=== PATIENT | female | born 2000 | race Two or more races ===

== ENCOUNTER 2020-09-11 07:16 | Outpatient (CLI) | payer BC, SELFPAY ==
[2020-09-11 12:19] LABS: Abs Immature Grans 0.01 10^3/uL (0.0-0.06); Absolute Basophil Count 0.03 10^3/uL (0.0-0.2); Absolute Eosinophil Count 0.06 10^3/uL (0.0-0.7); Absolute Lymphocyte Count 1.96 10^3/uL (1.2-3.4); Absolute Monocyte Count 0.42 10^3/uL (0.1-0.8); Absolute Neutrophil Count 2.14 10^3/uL (1.2-6.7); Basophils % 0.6; Eosinophils % 1.3; HGB 13.7 g/dL (11.2-15.7); Immature Grans % 0.2; Lymphocytes % 42.4; MCHC 33.4 % (32.0-36.0); MCV 89.9 fL (80-95); MPV 8.8 fL (8.0-11.0); Monocytes % 9.1; Neutrophils % 46.4; Nucleated RBC 0 %; Platelet Count 277 10^3/uL (130-400); RBC 4.56 10^6/uL (3.93-5.22); RDW 11.7 % (11.7-14.6); RDW-SD 38.5 fL; WBC 4.62 10^3/uL (4.4-10.8)
[2020-09-11 12:59] LABS: ALT 26 U/L (14-59); AST 14 U/L (15-37); Albumin 3.8 g/dL (3.4-5.0); Alkaline Phosphatase 54 U/L (46-116); Anion Gap 6.2 mmol/L (3-11); BUN 12 mg/dL (7-18); Bilirubin, Total 0.4 mg/dL (0.2-1.0); CO2 28.8 mmol/L (21.0-32.0); Chloride 105 mmol/L (98-107); Glucose 83 mg/dL (74-106); Potassium 4.4 mmol/L (3.5-5.1); Sodium 140 mmol/L (136-145); Total Protein 7.2 g/dL (6.4-8.2)
[2020-09-11 13:02] LABS: ESR 9 mm/hr (0-20)
[2020-09-11 13:07] LABS: C-Reactive Protein 0.65 mg/dL (0.0-0.3)
== END 2020-09-11 07:36 ==
PROVIDERS: PCP Pediatrics; Visit Provider Nurse Practitioner Pediatrics
DX: K92.1 Melena (principal)
CPT/HCPCS: 36415; 80053; 85652; 85025; 86140

== ENCOUNTER 2024-02-08 12:59 | Outpatient (CLI) | payer BC, SELFPAY ==
[2024-02-08 13:28] LABS: Abs Immature Grans 0.02 10^3/uL (0.0-0.06); Absolute Basophil Count 0.06 10^3/uL (0.0-0.2); Absolute Eosinophil Count 0.11 10^3/uL (0.0-0.7); Absolute Lymphocyte Count 2.25 10^3/uL (1.2-3.4); Absolute Monocyte Count 0.51 10^3/uL (0.1-0.8); Absolute Neutrophil Count 3.53 10^3/uL (1.2-6.7); Basophils % 0.9 %; Eosinophils % 1.7 %; HCT 38.6 % (36.0-46.0); HGB 13.3 g/dL (11.2-15.7); Immature Grans % 0.3 %; Lymphocytes % 34.7 %; MCH 30.3 pg (27.0-33.0); MCHC 34.5 % (32.0-36.0); MCV 88 fL (80-95); MPV 9.2 fL (8.0-11.0); Monocytes % 7.9 %; Neutrophils % 54.5 %; Platelet Count 307 10^3/uL (130-400); RBC 4.39 10^6/uL (3.93-5.22); RDW 11.7 % (11.7-14.6); RDW-SD 37.7 fL; WBC 6.48 10^3/uL (4.4-10.8)
[2024-02-08 14:10] LABS: Iron 110 ug/dL (50-170)
[2024-02-08 14:34] LABS: ALT 26 U/L (14-59); AST 13 U/L (15-37); Albumin 3.8 g/dL (3.4-5.0); Alkaline Phosphatase 71 U/L (46-116); BUN 10 mg/dL (7-18); Bilirubin, Total 0.5 mg/dL (0.2-1.0); CREATININE 0.8 mg/dL (0.55-1.02); Calcium 8.7 mg/dL (8.5-10.1); Chloride 105 mmol/L (98-107); Estimated GFR 106.11 (mL/min/1.73m2); Ferritin 42 ng/mL (8-252); Glucose 73 mg/dL (74-106); Potassium 3.8 mmol/L (3.5-5.1); Sodium 143 mmol/L (136-145); TSH (W/Ref FT4) 0.91 uIU/mL (0.36-3.74); Total Protein 7.4 g/dL (6.4-8.2); Vitamin B12 1050 pg/mL (193-986); Vitamin D 25 Total 60.9 ng/mL (30-100)
[2024-02-09 13:01] LABS: ANA Interpretation Negative (Negative)
[2024-02-16 13:16] LABS: Testosterone, Free 0.28 ng/dL (<0.13-1.08); Testosterone, Total 14 ng/dL (8-60)
== END 2024-02-08 13:00 | disposition home or self-care (01) ==
PROVIDERS: PCP Nurse Practitioner Family; Visit Provider Internal Medicine Endocrinology, Diabetes & Metabolism
DX: L65.0 Telogen effluvium (principal); E55.9 Vitamin D deficiency, unspecified; E03.9 Hypothyroidism, unspecified
CPT/HCPCS: 36415; 80053; 82306; 84402; 84403; 82607; 82728; 83540; 84443; 85025; 86038

== ENCOUNTER 2025-02-02 15:12 | Outpatient (REF) | payer BC, SELFPAY ==
--- NOTE | 2025-02-02 14:30 | PAPFT_PTH ---
PATIENT: Anita Whalen LOC: [facility] U#:[id number] AGE/SX: 24/F ROOM: RE02/02/[address]: Deya Shirley MD : [id number] BED: DIS: 02/02/2025 SPEC #: [id number] RECD: 02/02/25 18:08 STATUS: CAMILLA REKriss #: [id number] SAMY: 02/02/25 14:[address]: Deya Shirley DEPT: [facility] Cytology RECD BY: Asiya Alberts ENTERED: 02/02/25 18:08 SP TYPE: PAPFT OTHR DR: Tona Welsh, PATSY Tissues: 1 - CX/ENDOCX FOR PAP SMEARS Procedures: PAP THIN PREP/[facility] Screening Comments: [id number] (CHLAMYDIA/GC)
[2025-02-03 12:13] LABS: Chlamydia Result Negative (Negative); GC Result Negative (Negative)
== END 2025-02-02 15:13 | disposition home or self-care (01) ==
LOC: LBN 15:12
PROVIDERS: PCP Nurse Practitioner Family; Visit Provider Obstetrics & Gynecology
DX: N76.0 Acute vaginitis (principal)
CPT/HCPCS: 87491; 87591; 88142; 87480; 87510; 87660

== ENCOUNTER 2025-02-02 15:15 | Outpatient (CLI) | payer BC, SELFPAY ==
[2025-02-02 15:06] LABS: HCT 42.3 % (36.0-46.0); HGB 14.3 g/dL (11.2-15.7); MCH 30.6 pg (27.0-33.0); MCHC 33.8 % (32.0-36.0); MCV 91 fL (80-95); MPV 8.5 fL (8.0-11.0); Platelet Count 305 10^3/uL (130-400); RBC 4.67 10^6/uL (3.93-5.22); RDW 11.8 % (11.7-14.6); RDW-SD 38.8 fL; WBC 7.02 10^3/uL (4.4-10.8)
[2025-02-02 16:07] LABS: ALT 21 U/L (14-59); AST 14 U/L (15-37); Albumin 3.8 g/dL (3.4-5.0); Alkaline Phosphatase 64 U/L (46-116); Anion Gap 7.6 mmol/L (3-11); BUN 13 mg/dL (7-18); Bilirubin, Total 0.4 mg/dL (0.2-1.0); CO2 30.4 mmol/L (21.0-32.0); Calcium 9.1 mg/dL (8.5-10.1); Chloride 104 mmol/L (98-107); Estimated GFR 80.68 (mL/min/1.73m2); Glucose 93 mg/dL (74-106); Potassium 3.8 mmol/L (3.5-5.1); Sodium 142 mmol/L (136-145); TSH (W/Ref FT4) 1.09 uIU/mL (0.36-3.74); Total Protein 7.7 g/dL (6.4-8.2)
[2025-02-04 03:35] LABS: HIV-1/2 Ag & Ab Screen Negative (Negative)
[2025-02-04 04:40] LABS: HBs Antibody, Qual Negative (See Note); HBs Antibody, Quant <3.1 mIU/mL (See Note); Hepatitis B Core Antibody Negative (Negative); Hepatitis B surface Ag Negative (Negative); Hepatitis C Ab w Rflx HCV PCR Negative (Negative)
[2025-02-06 11:40] LABS: Syphilis Serology (RPR) Negative (Negative)
== END 2025-02-02 15:16 | disposition home or self-care (01) ==
LOC: LBO 15:15
PROVIDERS: Obstetrics & Gynecology; PCP Nurse Practitioner Family; Visit Provider Nurse Practitioner Family
DX: Z11.3 Encounter for screening for infections with a predominantly sexual mode of transmission (principal); Z00.00 Encounter for general adult medical examination without abnormal findings; E03.9 Hypothyroidism, unspecified; F32.9 Major depressive disorder, single episode, unspecified; J45.990 Exercise induced bronchospasm
CPT/HCPCS: 36415; 80053; 85027; 86704; 86706; 86803; 87340; 87389; 84443; 86592

== ENCOUNTER 2025-02-08 02:39 | Outpatient (CLI) | payer BC, SELFPAY ==
[2025-02-08 14:29] LABS: BUN 8 mg/dL (7-18); CREATININE 0.8 mg/dL (0.55-1.02); Calcium 8.8 mg/dL (8.5-10.1); Chloride 103 mmol/L (98-107); Estimated GFR 105.45 (mL/min/1.73m2); Glucose 95 mg/dL (74-106); Potassium 3.7 mmol/L (3.5-5.1); Sodium 139 mmol/L (136-145); Vitamin D 25 Total 63 ng/mL (30-100)
== END 2025-02-08 02:40 | disposition home or self-care (01) ==
LOC: LBO 02:39
PROVIDERS: PCP Nurse Practitioner Family; Visit Provider Nurse Practitioner Family
DX: E55.9 Vitamin D deficiency, unspecified (principal); R53.82 Chronic fatigue, unspecified; R94.4 Abnormal results of kidney function studies
CPT/HCPCS: 36415; 80048; 82306

== ENCOUNTER 2025-02-13 08:37 | Outpatient (REF) | payer BC, SELFPAY | END 2025-02-13 08:38 | disposition home or self-care (01) | LOC: LBN 08:37 | PROVIDERS: PCP Nurse Practitioner Family; Visit Provider Obstetrics & Gynecology | DX: N76.0 Acute vaginitis (principal) | CPT/HCPCS: 87480; 87510; 87660 ==